=== PATIENT | female | born 1985 | race Caucasian/White ===

== ENCOUNTER 2023-05-29 18:39 | Emergency (ER) | payer BC, SELFPAY ==
[2023-05-29 18:59] VITALS: BP 111/74; PULSE 81; RESP 14; TEMP 37.2; O2SAT 97; BMI 23.2
--- NOTE | 2023-05-29 19:06 | XR_ITS ---
Final Report Patient: ISADORA GERARDO Facility:?[facility] Patient ID:?[id number] Site Patient ID:?[id number]. Site :?[id number] Study:?XRay Extremity Right ANKLE-05/29/2023 7:19:29 PM Ordering Physician:JESSICA Final Report: Indication: Trauma. Technique: Right ankle, 3 views. Comparison: None. Findings/Impression: Bones: Alignment is normal. No displaced fractures or bone lesions. Joint spaces: Unremarkable. Soft tissues: Unremarkable. Dictated by Melo Gomez MD @ 05/29/2023 7:22:26 PM (Electronic Signature)
--- NOTE | 2023-05-29 19:21 | ED.LOWEXIN ---
HPI - Extremity Injury (Lower) General Time Seen by Provider: 19:21 Date Seen: 05/29/23 Chief Complaint: Extremity Pain/Injury, Lower Stated Complaint: R ankle trauma-broken? Time Seen by Provider: 05/29/23 19:19 Source: patient and RN notes reviewed Mode of arrival: ambulatory Limitations: no limitations History of Present Illness HPI Narrative: Melanie is a very pleasant 37-year-old female with history of right ankle sprain in the past who comes to the emergency room with right ankle pain after tripping in her [facility]. Patient is unsure of how the ankle went or landed but she notes that her shoe was stock going straight up in down in a box. She complains of pain on the anterior aspect of the ankle. Denies pain in the foot. Did not hurt any other part of the body. No numbness or tingling. Movement increases her discomfort and she is unable to bear weight. Resting it and not moving it seems to make it better. She did take ibuprofen prior to her arrival here [facility]. Related Data Home Medications Medication Instructions Recorded Confirmed hydroxyzine HCl 10 mg tablet 10 mg PO BID 05/29/23 05/29/23 norethindrone (contraceptive) 0.35 mg PO 05/29/23 mg tablet norethindrone 1 mg-ethinyl 1 tab PO DAILY 05/29/23 05/29/23 estradiol 20 mcg (21)-iron 75 mg (7) tablet (Blisovi Fe 04/27 ()) sertraline 50 mg tablet 50 mg PO DAILY 05/29/23 05/29/23 Allergies Allergy/AdvReac Type Severity Reaction Status Date / Time No Known Drug Allergies Allergy Verified 05/29/23 18:59 Exam Narrative: Exam Narrative: Melanie is alert and oriented. No acute distress. Examination of the right ankle shows no obvious swelling. She has pain with palpation over the anterior ankle ligaments. No ecchymosis is seen. No pain with high leg squeeze. No pain with palpation over the malleoli bilaterally. No pain with palpation over the navicular 5th metatarsal. Sensation is intact. Const: Vital Signs, click to edit/add: Vital Signs - 24 hr 05/29/23 18:59 Temperature 98.9 F Pulse Rate [Pulse Oximeter] 81 Respiratory Rate 14 Blood Pressure [Le ft Upper Arm] 111/74 Pulse Oximetry 97 Oxygen Delivery Me thod Room Air Documenting provider has reviewed patient's vital signs: yes Course Course ED Course: X-rays had been ordered on my behalf by nursing. By my read I do not note any acute fracture but we will await official radiological read. Vital Signs Vital signs: Initial Vital Signs Temperature 98.9 F 05/29/23 18:59 Temperature Source Temporal Artery Scan 05/29/23 18:59 Pulse Rate 81 05/29/23 18:59 Pulse Rhythm Regular 05/29/23 18:59 Respiratory Rate 14 05/29/23 18:59 Blood Pressure 111/74 05/29/23 18:59 Blood Pressure Mean 86 05/29/23 18:59 Blood Pressure Position Sitting 05/29/23 18:59 Pulse Oximetry 97 05/29/23 18:59 Oxygen Delivery Method Room Air 05/29/23 18:59 Vital Signs Temperature 98.9 F 05/29/23 18:59 Pulse Rate 81 05/29/23 18:59 Respiratory Rate 14 05/29/23 18:59 Blood Pressure 111/74 05/29/23 18:59 Pulse Oximetry 97 05/29/23 18:59 Oxygen Delivery Method Room Air 05/29/23 18:59 Temperature 98.9 F 05/29/23 18:59 Pulse Rate 81 05/29/23 18:59 Respiratory Rate 14 05/29/23 18:59 Blood Pressure 111/74 05/29/23 18:59 Pulse Oximetry 97 05/29/23 18:59 Oxygen Delivery Method Room Air 05/29/23 18:59 MDM - Extremity Injury (Lower) MDM Narrative Medical decision making narrative: 1. Right ankle sprain at this time this is likely a hyper plantar flexion injury. Will place patient in cam walker and crutches for partial weight-bearing. Ibuprofen or Tylenol may be used for discomfort and I do suggest icing of this area. Recommend follow-up with primary MD or Orthopedics if not improved in the next 48-72 hours. Patient may need physical therapy and/or MRI. 2. Disposition-home at this time. Return as needed. Medical Records Attestation: I reviewed the patient's medical records. Imaging Data Right ankle x-ray: Attestation: I have reviewed the pertinent imaging results. My impression: I do not note any acute fractures. Radiologist's impression: Bones: Alignment is normal. No displaced fractures or bone lesions. Joint spaces: Unremarkable. Soft tissues: Unremarkable. Discharge Plan Discharge Clinical Impression: Ankle sprain and strain Patient Disposition: Home, Self-Care Condition: Improved Additional Instructions: Suggest alternating ibuprofen and Tylenol as needed. Ice to area of concern. No obvious fracture on x-ray per radiological read. Suggest cam walker for further support and partial weight-bearing only with the use of crutches. Follow-up with your primary MD or Orthopedics if you are not doing better in the next 48-72 hours. Activity Level: No Restrictions Discharge Diet: Regular Prescriptions: No Action norethindrone-e.estradiol-iron [Blisovi Fe 04/27 (28)] 1 mg-20 mcg (21)/75 mg (7) tablet 1 tab PO DAILY norethindrone (contraceptive) 0.35 mg tablet PO hydroxyzine HCl 10 mg tablet 10 mg PO BID sertraline 50 mg tablet 50 mg PO DAILY Stand Alone Forms: [employer] Info Instructions
== END 2023-05-29 20:08 | disposition home or self-care (01) ==
PROVIDERS: Emergency Provider Family Medicine; PCP Family Medicine
DX: S93.401A Sprain of unspecified ligament of right ankle, initial encounter (principal); W22.8XXA Striking against or struck by other objects, initial encounter
CPT/HCPCS: 73610; 99283

== ENCOUNTER 2024-12-30 08:44 | Day surgery (SDC) | payer BC, SELFPAY ==
[2024-12-30] VITALS (13 sets, daily range): BP systolic 74–124; BP diastolic 44–91; PULSE 50–80; RESP 12–16; TEMP 36.2–37.1; O2SAT 94–100; BMI 23.8
[2024-12-30] MEDS: LACTATED RINGERS 1000 ML 1,000 ML 100 ML IV (09:04)
[2024-12-30] MEDS: SODIUM CHLORIDE 0.9 % (FLUSH) 10 ML SYRINGE IVF (09:04)
[2024-12-30 09:11] LABS: Ur HCG Qualitative* Negative (Negative)
--- NOTE | 2024-12-30 09:18 | W.PM.H&PU ---
History & Physical Update History & Physical Update H&P Reviewed and patient assessed: No changes noted
[2024-12-30] MEDS: LACTATED RINGERS 500 ML 500 ML 75 ML IV (12:02)
[2024-12-30] MEDS: ROPIVACAINE 0.5% 30 ML 150 MG INJECTION (12:07)
--- NOTE | 2024-12-30 12:07 | PM.ORPRC ---
Procedure Note Date of procedure: 12/30/24 Procedure: PREOPERATIVE DIAGNOSIS: 1. Right knee medial meniscus tear POSTOPERATIVE DIAGNOSIS: 1. Right knee medial plica 2. 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 Right knee arthroscopic chondroplasty medial femoral condyle 2. Right knee arthroscopic limited synovectomy (medial plica) SURGEON: Jamey Mays M.D. STAFFING ADMINISTRATOR: Stan Anderson PA-C. Of note, an ex assistant/program director was critical for this case to aid in patient positioning, knee manipulation, instrument exchange, and closure. ANESTHESIA: Spinal EBL: 2ml TOURNIQUET: 30 min at 300 torr COMPLICATIONS: None evident INDICATIONS: The patient is a pleasant 39-year-old female who has experienced right knee pain particularly with any twisting or turning. Physical exam was concerning for medial meniscus tear, this was confirmed on MRI. Additionally, attempted nonoperative management has been tried, and failed. Thus, surgery was recommended. FINDINGS: Grade 3 chondromalacia medial femoral condyle broadly through the weight-bearing portion extending approximately 4 cm from anterior, distal, to posterior around the arc and extending across the entire breadth medial to lateral of the medial femoral condyle. Medial meniscus overtly intact. The roots also intact including the anterior root. The anterior horn had fallen off the anterior tibia, but did not look pathologic. The inner meniscal ligament was clearly intact and had a separate delamination from this anterior horn, but again came together and looked to be anatomic for her. Medial meniscus capsular junction had some mild injury over approximately 6 mm in length. This did not have significant instability to the medial meniscus otherwise. Lateral meniscus intact. Lateral articular cartilage intact. Patella showed grade 2 chondromalacia with some subtle fissuring. Trochlea showed healthy articular cartilage. ACL and PCL intact robust. No loose bodies evident DESCRIPTION OF PROCEDURE: After a thorough discussion of risks, benefits, and alternatives, the patient was brought to the operating room and placed upon the operating table. Induction of anesthesia was undertaken as previously noted. 1 g IV Ancef was administered within 1 hr of incision preoperatively. Appropriate time-out was performed identifying proper patient, site, and procedure. The right lower extremity was prepped and draped in the appropriate sterile fashion using ChloraPrep. The limb was exsanguinated and tourniquet inflated. Anterolateral and anteromedial portals were established with an 11 blade, and a diagnostic arthroscopy was performed. This identified the findings as noted above. Following the diagnostic arthroscopy, a limited synovectomy was performed of the medial plica. In addition, chondroplasty was performed utilizing the motorized shaver of the loose chondral flaps on the medial femoral condyle. Following this, the meniscus was re-probed, reinspected, and probed again. It did not have instability. At this stage, the shaver was reinserted into the suprapatellar pouch and all remaining meniscal debris was evacuated. Instruments were removed, excess fluid was drained, and closure performed with 4-0 Monocryl with Steri-Strips. Dressings were applied, the tourniquet deflated, and the patient was awoken from anesthesia and transferred to the PACU in stable condition. PLAN: 1. Weightbear as tolerated operative extremity. Crutch / walker ambulation assistance PRN. 2. Ice, acetominophen and/or ibuprofen, and Oxycodone for pain as needed. 3. Knee range of motion and quad sets/straight leg raise regularly 4. Follow up with PA visit in 1-2 weeks for a wound check and possibly to initiate physical therapy.
--- NOTE | 2024-12-30 12:22 | P.ANES_ITS ---
Anesthesia Charges Start Date/Time Anesthesia Start Date: 12/30/24 Anesthesia Start Time: 11:07 Stop Date/Time Anesthesia Stop Date: 12/30/24 Anesthesia Stop Time: 12:21 Coding CPT Codes CPT Codes: ANESTH KNEE JOINT SURGERY - 87672 ([id number]) P1 - NORMAL HEALTHY PATIENT, QK - SENIOR DATA WAREHOUSE DEVELOPER 2-4 CNCRNT ANES PROC, QX - HEAT AND VENT AIRCRAFT MECHANIC SVDia W/ MED DIRECTION
--- NOTE | 2024-12-30 12:22 | W.ANESCHARGE ---
Anesthesia Charges Start Date/Time Anesthesia Start Date: 12/30/24 Anesthesia Start Time: 11:07 Stop Date/Time Anesthesia Stop Date: 12/30/24 Anesthesia Stop Time: 12:21 Coding CPT Codes CPT Codes: ANESTH KNEE JOINT SURGERY - 04839 ([id number]) P1 - NORMAL HEALTHY PATIENT, QK - SYSTEMS REQUIREMENTS PLANNER 2-4 CNCRNT ANES PROC, QX - SHIPPING RECEIVING CLERK SVDia W/ MED DIRECTION
--- NOTE | 2024-12-30 12:31 | P.ANES_ITS ---
Anesthesia Charges Start Date/Time Anesthesia Start Date: 12/30/24 Anesthesia Start Time: 11:07 Stop Date/Time Anesthesia Stop Date: 12/30/24 Anesthesia Stop Time: 12:21 Coding CPT Codes CPT Codes: ANESTH KNEE JOINT SURGERY - 15219 ([id number]) P1 - NORMAL HEALTHY PATIENT, QK - HELPER MARBLE FINISHER 2-4 CNCRNT ANES PROC, QX - FLY FISHING GUIDE SVDia W/ MED DIRECTION
--- NOTE | 2024-12-30 12:31 | W.ANESCHARGE ---
Anesthesia Charges Start Date/Time Anesthesia Start Date: 12/30/24 Anesthesia Start Time: 11:07 Stop Date/Time Anesthesia Stop Date: 12/30/24 Anesthesia Stop Time: 12:21 Coding CPT Codes CPT Codes: ANESTH KNEE JOINT SURGERY - 20739 ([id number]) P1 - NORMAL HEALTHY PATIENT, QK - SENIOR MARKET INTELLIGENCE CONSULTANT 2-4 CNCRNT ANES PROC, QX - SENIOR MEDICAL TECHNOLOGIST SVDai W/ MED DIRECTION
== END 2024-12-30 14:40 | disposition home or self-care (01) ==
LOC: OR 08:45
PROVIDERS: Anesthesiology; PCP Family Medicine; Visit Provider Orthopaedic Surgery Sports Medicine
PROC: (CPT 29870; principal; 2024-12-30 10:45)
DX: M67.51 Plica syndrome, right knee (principal); M94.261 Chondromalacia, right knee
CPT/HCPCS: 29875; 01400; 81025; J0690; J1100; J2250; J2371; J2405; J2704; J2795; J3010; J7120